=== PATIENT | female | born 1970 ===

== ENCOUNTER 2021-12-24 15:26 | Outpatient (REF) | payer MEDICAID, SELFPAY ==
[2021-12-24 15:17] LABS: Calculated LDL 93 mg/dL (<100); Cholesterol 196 mg/dL (<200); HDL Cholesterol 41 mg/dL (40-60); Triglyceride 310 mg/dL (<150)
[2021-12-24 16:00] LABS: Hemoglobin A1C 5.7 % (<5.7)
== END 2021-12-24 15:27 | disposition home or self-care (01) ==
LOC: NCHCN 15:26
PROVIDERS: Visit Provider Nurse Practitioner Family
DX: Z13.220 Encounter for screening for lipoid disorders (principal); Z13.1 Encounter for screening for diabetes mellitus
CPT/HCPCS: 80061; 83036

== ENCOUNTER 2022-01-10 10:21 | Outpatient (REF) | payer MEDICAID, SELFPAY ==
[2022-01-10 16:13] LABS: Albumin 3.8 g/dL (3.4-5.0); Magnesium 2.1 mg/dL (1.8-2.4); PHOSPHORUS 4.3 mg/dL (2.6-4.7); Total Protein 7.7 g/dL (6.4-8.2)
[2022-01-10 16:51] LABS: Vitamin B12 326 pg/mL (193-986)
[2022-01-13 05:42] LABS: Vitamin D 25 Total 34.6 ng/mL (30-100)
== END 2022-01-10 10:22 | disposition home or self-care (01) ==
LOC: NCHCN 10:21
PROVIDERS: Visit Provider Family Medicine
DX: Z01.818 Encounter for other preprocedural examination (principal); M51.26 Other intervertebral disc displacement, lumbar region
CPT/HCPCS: 82306; 84630; 87081; 87641; 82040; 82607; 83735; 84100; 84155